=== PATIENT | male | born 1960 | race Caucasian/White ===

== ENCOUNTER 2017-01-11 02:40 | Emergency (ER) | payer SELFPAY ==
[~2017-01-11] VITALS: Ht 180.3 cm; Wt 83.9 kg
[2017-01-11 02:50] VITALS: BP_SYST 162
[2017-01-11 03:15] VITALS: BP_SYST 145
== END 2017-01-11 03:15 ==
LOC: SED 02:40
DX: Z02.89 Encounter for other administrative examinations (principal)
CPT/HCPCS: 99283